=== PATIENT | female | born 1950 | race Caucasian/White ===

== ENCOUNTER 2016-07-12 11:54 | Emergency (ER) | payer OTHER ==
[2016-07-12 12:01] VITALS: BP 170/96; PULSE 98; TEMP 99; BMI 19.8
--- NOTE | 2016-07-12 14:55 | PDOC ---
History of Present Illness - General History Source: Patient Exam Limitations: No Limitations - History of Present Illness Initial Comments: 07/12/16 14:56 The patient is a 66 year old female, with a significant past medical history of anxiety and prior Hep C.( with treatment and viral cure) who presents to the emergency department with chills and weakness that has been getting progressively worse over the past couple of days. Patient reports normally being able to jog ,but recently is unable to do any strenuous physical activity secondary to weakness. She reports also having a baseline cough which she attributes to her current smoking habits. She reports also having one episode of diarrhea yesterday (nonbloody and nonbilious). She reports taking Ibuprofen with no alleviation of any of her symptoms. She denies having the flu shot this year. She denies any HIV testing upon ED arrival and her most recent HIV testing was negative. She denies any throat pain. She denies any abdominal pain. She denies chest pain and shortness of breath. She denies headache She denies nausea, vomit, and constipation. She denies dysuria, frequency, urgency and hematuria. She denies any other complaints at this time, and the remainder of the review of systems is negative. 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 <Freddy Rios - Last Filed: 07/12/16 16:04> <Tameka Brunner - Last Filed: 07/12/16 17:33> - General Chief Complaint: Cold Symptoms Stated Complaint: FEVER, WEAKNESS Time Seen by Provider: 07/12/16 13:53 Past History <Freddy Rios - Last Filed: 07/12/16 16:04> - Past Medical History Other medical history: DENIES - Psycho/Social/Smoking Cessation Hx Anxiety: Yes Suicidal Ideation: No Smoking History: Current every day smoker Number of Cigarettes Smoked Daily: 20 Information on smoking cessation initiated: Yes 'Breaking Loose' booklet given: 07/12/16 Hx Alcohol Use: No Drug/Substance Use Hx: Yes Substance Use Type: Prescribed <Tameka Brunner - Last Filed: 07/12/16 17:33> - Past Medical History Allergies/Adverse Reactions: Allergies Allergy/AdvReac Type Severity Reaction Status Date / Time No Known Allergies Allergy Verified 07/12/16 14:56 Home Medications: Ambulatory Orders Azithromycin [Zithromax] 250 mg PO UTDICT #6 tab 07/12/16 Lorazepam 3 mg PO HS 07/12/16 Lorazepam [Ativan] 2 mg PO DAILY 07/12/16 Methadone [Dolophine -] 50 mg PO DAILY 07/12/16 Review of Systems - Review of Systems Able to Perform ROS?: Yes Comments:: 07/12/16 14:56 12 point review of systems is as per history of present illness and otherwise negative <Freddy Rios - Last Filed: 07/12/16 16:04> *Physical Exam - Vital Signs Last Vital Signs Temp Pulse Resp BP Pulse Ox 99 F 98 H 18 170/96 100 07/12/16 11:54 07/12/16 11:54 07/12/16 11:54 07/12/16 11:54 07/12/16 11:54 - Physical Exam Comments: 07/12/16 14:56 GENERAL: The patient is awake, alert, and answering questions, in no respiratory distress HEAD: Normal with no signs of trauma. EYES: Normal CURLY ENT: Normal ENT Inspection. Slightly dry mucous membranes NECK: Normal range of motion, supple without lymphadenopathy LUNGS: Lungs Clear, Normal Breath Sounds HEART: Regular rate and rhythm, normal S1 and S2 without murmur, rub or gallop. ABDOMEN: Soft, nontender, normoactive bowel sounds. No guarding, no rebound. No masses appreciated. EXTREMITIES: Normal range of motion, no edema. No clubbing or cyanosis. No cords , erythema, or tenderness. NEUROLOGICAL: Cranial nerves II through XII grossly intact. Normal speech, normal gait. Grossly nonfocal neurologic exam PSYCH: Normal mood, normal affect. SKIN: Warm, Dry, normal turgor, no rashes or lesions noted. <Freddy Rios - Last Filed: 07/12/16 16:04> - Vital Signs Last Vital Signs Temp Pulse Resp BP Pulse Ox 99 F 98 H 18 170/96 100 07/12/16 11:54 07/12/16 11:54 07/12/16 11:54 07/12/16 11:54 07/12/16 11:54 <Tameka Brunner - Last Filed: 07/12/16 17:33> ED Treatment Course - RADIOLOGY Radiograph Interpretation: 07/12/16 16:04 CHEST X-RAY impressions reported by : Nodular density in the right lower lobe which can be further evaluated with CT. Irregularity of the right posterolateral eight rib which may reflect fracture of indeterminate age. <Freddy Rios - Last Filed: 07/12/16 16:04> - LABORATORY CBC & Chemistry Diagram: 07/12/16 16:13 07/12/16 16:13 - RADIOLOGY Radiology Studies Ordered: Category Date Time Status CHEST PA & LAT [RAD] Stat Radiology 07/12/16 14:54 Ordered <Tameka Brunner - Last Filed: 07/12/16 17:33> Medical Decision Making - Medical Decision Making 07/12/16 14:55 66-year-old female with past medical history as noted above presents with generalized malaise She does have a chronic smoker's cough-smokes one pack a day-but there is been no change in her smoker's cough, and is nonproductive She does admit to chills without fever She had some diarrhea yesterday which resolved She denies any other complaints 07/12/16 16:41 EKG Normal sinus rhythm 74, 0 axis Normal AV and IV conduction time Normal QTC Normal EKG 07/12/16 16:42 Chest x-ray There is a tiny nodule in the right lower lobe No definite infiltrate is seen 07/12/16 17:13 Laboratory Results - last 24 hr 07/12/16 07/12/16 07/12/16 16:13 16:13 16:13 WBC 14.4 H RBC 5.01 Hgb 14.9 Hct 45.4 H MCV 90.7 MCHC 32.9 RDW 13.8 Plt Count 310 MPV 8.4 Sodium 134 L Potassium 3.8 Chloride 97 L Carbon Dioxide 29 H Anion Gap 8 BUN 16 Creatinine 0.7 Creat Clearance w eGFR > 60 Random Glucose 66 L Calcium 9.5 Magnesium 2.1 Total Bilirubin 0.3 AST 49 H ALT 30 Alkaline Phosphatase 69 Creatine Kinase 118 Troponin I < 0.03 L Total Protein 8.8 H Albumin 4.5 Lipase 27 Elevated white count, cough, weakness, no definite infiltrate on chest x-ray Possibly some element of bronchitis Patient drinking fluids without difficulty Treatment with Z-Griffin 07/12/16 17:33 Influenza A and B- negative <Tameka Brunner - Last Filed: 07/12/16 17:33> *DC/Admit/Observation/Transfer - Attestations Scribe Attestion: 07/12/16 14:56 Documentation prepared by Freddy Rios, acting as medical art therapist for Tameka Brunner MD. <Freddy Rios - Last Filed: 07/12/16 16:04> <Tameka Brunner - Last Filed: 07/12/16 17:33> Diagnosis at time of Disposition: Bronchitis, Influenza-like illness - Discharge Dispostion Disposition: HOME Condition at time of disposition: Stable - Prescriptions Prescriptions: Azithromycin [Zithromax] 250 mg PO UTDICT #6 tab - Patient Instructions Additional Instructions: Zithromax Z-Griffin-take as directed Increase fluid intake Tylenol or Motrin if needed for discomfort You will be notified if you're flu swab is positive Followup with your primary care physician in 24-48 hours Return immediately if you worsen in any way Take your medications as directed
[2016-07-12] MEDS ORDERED: SODIUM CHLORIDE 1,000 ML IV SCH (15:00)
[2016-07-12 16:37] LABS: MCH 29.9 pg (25.7-33.7); MCHC 32.9 g/dl (32.0-36.0); MEAN CELL VOLUME 90.7 fl (80-96); MEAN PLT VOLUME 8.4 fl (7.5-11.1); PLATELET COUNT 310 K/MM3 (134-434); RDW 13.8 % (11.6-15.6); WHITE BLOOD COUNT 14.4 K/mm3 (4.0-10.0)
[2016-07-12 16:50] LABS: ALBUMIN 4.5 g/dl (3.5-5.0); ALK PHOS 69 U/L (32-92); ANION GAP 8 (8-16); BILIRUBIN,TOTAL 0.3 mg/dl (0.2-1.0); CALCIUM 9.5 mg/dl (8.4-10.2); CO2 29 mmol/L (22-28); CPK(DFH) 118 IU/L (26-140); CREATININE 0.7 mg/dl (0.6-1.3); GLUCOSE,RANDOM 66 mg/dl (74-106); MAGNESIUM 2.1 mg/dL (1.8-2.4); SGOT/AST 49 U/L (10-42); SGPT/ALT 30 U/L (10-40); TOT PROT 8.8 g/dl (6.4-8.3)
[2016-07-12 17:01] LABS: TROPONIN I (DFP) < 0.03 ng/ml (0.03-0.50)
[2016-07-12 17:53] LABS: PH,URINE >= 9.0 (4.5-8); URINE APPEARANCE Clear; URINE BILIRUBIN Negative (NEGATIVE); URINE BLOOD Negative (NEGATIVE); URINE GLUCOSE (UA) Negative (NEGATIVE); URINE KETONE Negative (NEGATIVE); URINE LEUK ESTERASE Trace (NEGATIVE); URINE NITRITE Negative (NEGATIVE); URINE PROTEIN Negative (NEGATIVE); URINE UROBILINOGEN 0.2 E.U/dl (0.2-1.0)
[2016-07-12 17:55] LABS: URINE COLOR YELLOW
--- NOTE | 2016-07-13 13:46 | EKG ---
Test Reason : Blood Pressure : / mmHG Vent. Rate : 078 BPM Atrial Rate : 078 BPM P-R Int : 126 ms QRS Dur : 086 ms QT Int : 382 ms P-R-T Axes : 031 000 015 degrees QTc Int : 435 ms NORMAL SINUS RHYTHM NORMAL ECG NO PREVIOUS ECGS AVAILABLE Confirmed by BEST SMITH MD ([id number]) on 07/13/2016 1:46:03 PM Referred By: DR SKINNER Confirmed By:BEST SMITH MD
== END 2016-07-12 17:37 | disposition home or self-care (01) ==
LOC: FER 11:54
DX: J11.1 Influenza due to unidentified influenza virus with other respiratory manifestations (principal); J40 Bronchitis, not specified as acute or chronic; F17.201 Nicotine dependence, unspecified, in remission; F41.9 Anxiety disorder, unspecified; B19.20 Unspecified viral hepatitis C without hepatic coma
CPT/HCPCS: 36415; 71020-TC; 80053; 81003; 82550; 83690; 83735; 84484; 85027; 87086; 87804; 93005; 99282-25

== ENCOUNTER 2017-06-15 11:15 | Emergency (ER) | payer OTHER ==
[2017-06-15 11:37] VITALS: BP 146/88; PULSE 90; TEMP 98.8; BMI 21.7
--- NOTE | 2017-06-15 11:57 | PDOC ---
History of Present Illness - General Chief Complaint: Shortness of Breath Stated Complaint: FEVER, SOB Time Seen by Provider: 06/15/17 11:54 History Source: Patient Exam Limitations: No Limitations - History of Present Illness Initial Comments: 06/15/17 11:57 My Chief Complaint: Chills, subjective [id number], shortness of breath with exertion History of present illness: Patient is a 67-year-old female with a history of anxiety, and past drug addiction here today complaining of subjective fever, chills, shortness of breath with exertion. Patient reports that 2 of her friends have been sick with sore throats, upper respiratory infections. Patient denies any sore throat, nasal congestion, cough, nausea, vomiting, and any chest pain. Patient is a smoker 1 pack a day for 30 years. Patient denies any wheezing or respiratory distress. 06/15/17 12:23 Timing/Duration: intermittent Severity: mild Associated Symptoms: reports: fever/chills (subjective), shortness of breath ( with ambulation ) Past History - Past Medical History Allergies/Adverse Reactions: Allergies Allergy/AdvReac Type Severity Reaction Status Date / Time No Known Allergies Allergy Verified 06/15/17 11:39 Home Medications: Ambulatory Orders Lorazepam 3 mg PO HS 07/12/16 Lorazepam [Ativan] 2 mg PO DAILY 07/12/16 Methadone [Dolophine -] 50 mg PO DAILY 07/12/16 COPD: No - Surgical History Abdominal Surgery: No Appendectomy: No Cardiac Surgery: No Cholecystectomy: No Gastric Stapling: No - Suicide/Smoking/Psychosocial Hx Smoking History: Current every day smoker Number of Cigarettes Smoked Daily: 20 Information on smoking cessation initiated: Yes 'Breaking Loose' booklet given: 06/15/17 Hx Alcohol Use: No Drug/Substance Use Hx: No Substance Use Type: Heroin, Prescribed Review of Systems - Review of Systems Able to Perform ROS?: Yes Constitutional: No: Symptoms Reported HEENTM: No: Symptoms Reported Respiratory: Yes: SOB with Exertion Cardiac (ROS): No: Symptoms Reported ABD/GI: No: Symptoms Reported : No: Symptoms Reported Musculoskeletal: No: Symptoms Reported Integumentary: No: Symptoms Reported *Physical Exam - Vital Signs Last Vital Signs Temp Pulse Resp BP Pulse Ox 98.8 F 90 18 146/88 100 06/15/17 11:33 06/15/17 11:33 06/15/17 11:33 06/15/17 11:33 06/15/17 11:33 - Physical Exam General Appearance: Yes: Appropriately Dressed HEENT: positive: Normal ENT Inspection Neck: negative: Lymphadenopathy (R), Lymphadenopathy (L) Respiratory/Chest: positive: Lungs Clear, Normal Breath Sounds. negative: Chest Tender, Respiratory Distress Cardiovascular: positive: Regular Rhythm, Regular Rate, S1, S2 Integumentary: positive: Normal Color Neurologic: positive: Alert, Normal Response, Responsive Medical Decision Making - Medical Decision Making 06/15/17 13:02 Patient is a 67-year-old female with a history of anxiety, and past drug addiction here today complaining of subjective fever, chills, shortness of breath with exertion. Patient reports that 2 of her friends have been sick with sore throats, upper respiratory infections. Patient denies any sore throat, nasal congestion, cough, nausea, vomiting, and any chest pain. Patient is a smoker 1 pack a day for 30 years. Patient denies any wheezing or respiratory distress. R/O infiltrate silverio; syndrome PLAN chest PA/lateral no infiltrate noted per Dr. Orozco 06/15/17 13:16 *DC/Admit/Observation/Transfer Diagnosis at time of Disposition: Viral syndrome - Discharge Dispostion Condition at time of disposition: Stable - Referrals Referrals: Lazaro Brantley MD [Primary Care Provider] - - Patient Instructions Additional Instructions: Drink a lot a fluids and rest Follow up with your primary care provider within the next few days Return to emergency room if any difficulty breathing or any new symptoms develop Patient voiced understanding of discharge instructions and all questions were answered Andthank you for choosing [facility] emergency room for your medical needs today - Post Discharge Activity
== END 2017-06-15 13:44 | disposition home or self-care (01) ==
LOC: JERFT 11:15
DX: B34.9 Viral infection, unspecified (principal); F41.9 Anxiety disorder, unspecified; F11.20 Opioid dependence, uncomplicated
CPT/HCPCS: 71020-TC; 99281-25

== ENCOUNTER 2024-01-28 09:38 | Inpatient (IN) | payer OTHER ==
[2024-01-28 10:04] VITALS: BMI 15.4
[2024-01-28] MEDS ORDERED: METOPROLOL TARTRATE 25 MG TABLET (FP) ONE (10:35)
[2024-01-28] MEDS ORDERED: NICOTINE POLACRILEX 2 MG GUM ONE (10:35)
[2024-01-28] MEDS ORDERED: POLYETHYLENE GLYCOL (HEALTHYLAX) 3350 17 GM PACKET PO PRN (10:38)
[2024-01-28] MEDS ORDERED: ACETAMINOPHEN 325 MG TABLET (FP) PO PRN (10:38)
[2024-01-28] MEDS ORDERED: LOPERAMIDE HCL 2 MG CAPSULE PO PRN (10:38)
[2024-01-28] MEDS ORDERED: DOCUSATE SODIUM 100 MG CAPSULE (FP) PO PRN (10:38)
[2024-01-28] MEDS ORDERED: NALOXONE HCL 0.4 MG/ML VIAL IM PRN (10:38)
[2024-01-28] MEDS ORDERED: IBUPROFEN 600 MG TABLET (FP) PO PRN (10:38)
[2024-01-28] MEDS ORDERED: IBUPROFEN 400 MG TABLET (FP) PO PRN (10:38)
[2024-01-28] MEDS ORDERED: MAG HYDROX/AL HYDROX/SIMETH 30 ML UNIT-DOSE CUP PO PRN (10:38)
[2024-01-28] MEDS ORDERED: MAGNESIUM HYDROX 2400MG/30ML ORAL SUSPENSION 30 ML CUP PO PRN (10:38)
[2024-01-28] MEDS ORDERED: guaiFENesin 600 MG TABLET.ER (FP) PO PRN (10:38)
[2024-01-28] MEDS ORDERED: BISACODYL 5 MG TABLET.DR (FP) PO PRN (10:38)
[2024-01-28] MEDS ORDERED: BENZONATATE 200 MG CAPSULE PO PRN (10:38)
[2024-01-28] MEDS ORDERED: NALOXONE (NARCAN) HCL 4 MG/0.1 ML SPRAY NS PRN (10:38)
[2024-01-28] MEDS ORDERED: BENZOCAINE/MENTHOL (CHLORASEPTIC ) LOZENGE MM PRN (10:38)
[2024-01-28] MEDS: METOPROLOL TARTRATE 25 MG TABLET (FP) PO ONE (10:40)
[2024-01-28] MEDS: NICOTINE POLACRILEX 2 MG GUM BUC PRN (10:40)
[2024-01-28] MEDS ORDERED: levETIRAcetam 500 MG TABLET (FP) PO ONE (11:04)
[2024-01-28] MEDS: levETIRAcetam 500 MG TABLET (FP) PO SCH (11:06)
[2024-01-28 16:41] LABS: HEMATOCRIT 42.6 % (32.4-45.2); HEMOGLOBIN 13.9 GM/dL (10.7-15.3); MCH 30.6 pg (25.7-33.7); MCHC 32.6 g/dl (32.0-36.0); MEAN CELL VOLUME 94.1 fl (80-96); MEAN PLT VOLUME 8.6 fl (7.5-11.1); PLATELET COUNT 355 10^3/uL (134-434); RBC 4.52 M/mm3 (3.60-5.2); RDW 14.1 % (11.6-15.6)
[2024-01-28 16:44] LABS: POTASSIUM 3.2 mmol/L (3.5-5.1)
[2024-01-28 16:47] LABS: CALCIUM 9.4 mg/dL (8.5-10.1)
[2024-01-28 16:48] LABS: ALBUMIN 3.7 g/dl (3.4-5.0); BLOOD UREA NITROGEN 28.6 mg/dL (7-18)
[2024-01-28 16:51] LABS: CREATININE 1.2 mg/dL (0.55-1.3)
[2024-01-28 16:53] LABS: BILIRUBIN,TOTAL 0.6 mg/dL (0.2-1)
[2024-01-28 20:20] LABS: EPI CELLS 33 /uL (0-25.1); HYALINE CASTS 18 /uL (0-3.1); URINE APPEARANCE TURBID; URINE BACTERIA 139 /uL (0-1359); URINE BILIRUBIN NEGATIVE (NEGATIVE); URINE COLOR YELLOW; URINE GLUCOSE (UA) TRACE (NEGATIVE); URINE KETONE NEGATIVE (NEGATIVE); URINE LEUK ESTERASE 2+ (NEGATIVE); URINE NITRITE NEGATIVE (NEGATIVE); URINE PROTEIN 2+ (NEGATIVE); URINE UROBILINOGEN 0.2 mg/dL (0.2-1.0); URINE WBC 681 /uL (0-25.8)
[2024-01-28] MEDS: MELATONIN 5 MG TABLETS PO SCH (22:46)
[2024-01-28] MEDS: SULFAMETHOXAZOLE/TRIMETHOPRIM 800MG/160MG D.S. TABLET PO SCH (22:46)
[2024-01-28] MEDS: THIAMINE 100 MG TABLET PO SCH (22:46)
[2024-01-29] MEDS: methaDONE 40 MG, methaDONE 10 MG PO SCH (05:58)
[2024-01-29] MEDS ORDERED: methaDONE HCL 40 MG DISPERSABLE TABLET PO SCH (06:00)
[2024-01-29] MEDS: POTASSIUM CHLORIDE ORAL LIQUID 20 MEQ/15 ML PO ONE (09:26)
[2024-01-29] MEDS: PRENATAL VITAMINS W/ FOLIC ACID TABLET (FP) PO SCH (09:26)
[2024-01-31] MEDS: cloNIDine HCL 0.1 MG TABLET PO ONE (12:06)
[2024-01-31] MEDS: propRANOLol HCL 10 MG TABLET PO ONE (12:14)
[2024-01-31] MEDS: NICOTINE POLACRILEX 4 MG GUM BUC PRN (14:15)
[2024-02-02] MEDS: diazePAM 5 MG TABLET PO ONE (19:13)
[2024-02-05 07:06] VITALS: RESP 18
[2024-02-06 07:06] VITALS: TEMP 98.1
[2024-02-06 09:30] VITALS: BP 162/91; PULSE 117
== END 2024-02-06 11:30 | disposition home or self-care (01) | DRG 895 ==
LOC: YASAS 09:38 → Y3NR 13:04 → Y5N 01-31 13:57
PROVIDERS: ADMIT Allergy & Immunology; ATTEND Psychiatry & Neurology Pain Medicine
PROC: HZ42ZZZ Group Counseling for Substance Abuse Treatment, Cognitive-Behavioral (ICD-10-PCS; principal; 2024-01-28)
DX: F10.20 Alcohol dependence, uncomplicated (principal); F11.20 Opioid dependence, uncomplicated; F17.210 Nicotine dependence, cigarettes, uncomplicated; F41.9 Anxiety disorder, unspecified; I10 Essential (primary) hypertension; G47.00 Insomnia, unspecified; E87.6 Hypokalemia; R74.01 Elevation of levels of liver transaminase levels; R00.0 Tachycardia, unspecified; Z86.19 Personal history of other infectious and parasitic diseases; Z87.440 Personal history of urinary (tract) infections; Z56.0 Unemployment, unspecified
CPT/HCPCS: 36415; 80053; 80305; 80307; 81003; 85027; 86780; 87811; 93005; 93010

== ENCOUNTER 2024-02-27 12:42 | Inpatient (IN) | payer OTHER ==
[2024-02-27] MEDS ORDERED: FAMOTIDINE 20 MG/50 ML IVPB 20 MG/50 ML MG IVPB ONE (13:45)
[2024-02-27] MEDS ORDERED: MAG HYDROX/AL HYDROX/SIMETH 30 ML UNIT-DOSE CUP ONE (14:06)
[2024-02-27] MEDS ORDERED: ACETAMINOPHEN INJECTION 100 ML ONE (14:06)
[2024-02-27] MEDS: MAG HYDROX/AL HYDROX/SIMETH 30 ML UNIT-DOSE CUP PO ONE (14:23)
[2024-02-27] MEDS: SODIUM CHLORIDE 0.9% 500 ML INFUS.BAG IV ONE ×3 (15:46→20:05)
[2024-02-27] MEDS: ACETAMINOPHEN 1000 MG/100 ML BAG IVPB ONE (15:46)
[2024-02-27 15:47] LABS: BASO % 0.4 % (0-2.0); EOS % 0.5 % (0-4.5); HEMATOCRIT 47.3 % (32.4-45.2); HEMOGLOBIN 15.9 GM/dL (10.7-15.3); LYMPH % 10.9 % (8-40); MCH 31.4 pg (25.7-33.7); MCHC 33.6 g/dl (32.0-36.0); MEAN CELL VOLUME 93.6 fl (80-96); MEAN PLT VOLUME 8.8 fl (7.5-11.1); MONO % 4.8 % (3.8-10.2); NEUT % 83.4 % (42.8-82.8); PLATELET COUNT 367 10^3/uL (134-434); RBC 5.05 M/mm3 (3.60-5.2); RDW 14.8 % (11.6-15.6); WHITE BLOOD COUNT 18.4 K/mm3 (4.0-10.0)
[2024-02-27 16:10] LABS: POTASSIUM 4.6 mmol/L (3.5-5.1)
[2024-02-27 16:13] LABS: ALBUMIN 4.5 g/dl (3.4-5.0); BLOOD UREA NITROGEN 40.3 mg/dL (7-18); CALCIUM 10.3 mg/dL (8.5-10.1); MAGNESIUM 2.8 mg/dL (1.8-2.4)
[2024-02-27 16:16] LABS: CREATININE 0.9 mg/dL (0.55-1.3); PHOSPHOROUS 4.5 mg/dL (2.5-4.9)
[2024-02-27 16:17] LABS: BILIRUBIN,TOTAL 0.7 mg/dL (0.2-1); TOT PROT 9.8 g/dl (6.4-8.2)
[2024-02-27] MEDS ORDERED: NICOTINE 14 MG/24 HOURS TOPICAL PATCH TD ONE (20:06)
[2024-02-27] MEDS: NICOTINE 14 MG/24 HOURS TOPICAL PATCH TD SCH (20:20)
[2024-02-27 20:39] LABS: HIV INTERPRETATION NEGATIVE (NEGATIVE)
[2024-02-27] MEDS ORDERED: THIAMINE HCL 200 MG/2 ML VIAL ONE (22:45)
[2024-02-27] MEDS ORDERED: SENNOSIDES 8.6MG TABLET (FP) PO ONE (22:45)
[2024-02-27] MEDS ORDERED: POLYETHYLENE GLYCOL (HEALTHYLAX) 3350 17 GM PACKET ONE (22:45)
[2024-02-27] MEDS: THIAMINE HCL 200 MG/2 ML VIAL IVPB ONE (23:02)
[2024-02-27] MEDS: POLYETHYLENE GLYCOL (HEALTHYLAX) 3350 17 GM PACKET PO SCH (23:03)
[2024-02-27] MEDS: SENNOSIDES 8.6MG TABLET (FP) PO SCH (23:03)
[2024-02-27] MEDS ORDERED: levETIRAcetam 500 MG TABLET (FP) PO ONE (23:50)
[2024-02-27] MEDS ORDERED: methaDONE HCL 10 MG TABLET ONE (23:50)
[2024-02-27] MEDS: methaDONE HCL 10 MG TABLET PO ONE (23:58)
[2024-02-27] MEDS: levETIRAcetam 500 MG TABLET (FP) PO SCH (23:59)
[2024-02-28] MEDS: ENOXAPARIN NA (PORCINE) 40 MG/0.4 ML DISP.SYRIN SQ SCH (10:47)
[2024-02-28] MEDS: THIAMINE HCL 200 MG/2 ML VIAL IVPB SCH (10:48)
[2024-02-28 12:04] LABS: BASO % 0.5 % (0-2.0); EOS % 1.8 % (0-4.5); HEMATOCRIT 38.2 % (32.4-45.2); HEMOGLOBIN 12.5 GM/dL (10.7-15.3); LYMPH % 13.6 % (8-40); MCH 31.2 pg (25.7-33.7); MCHC 32.8 g/dl (32.0-36.0); MEAN CELL VOLUME 95.1 fl (80-96); MEAN PLT VOLUME 8.9 fl (7.5-11.1); NEUT % 77.1 % (42.8-82.8); PLATELET COUNT 290 10^3/uL (134-434); RBC 4.02 M/mm3 (3.60-5.2); RDW 14.6 % (11.6-15.6); WHITE BLOOD COUNT 13.6 K/mm3 (4.0-10.0)
[2024-02-28 12:25] LABS: POTASSIUM 3.8 mmol/L (3.5-5.1)
[2024-02-28 12:28] LABS: ALBUMIN 3.6 g/dl (3.4-5.0); AMYLASE 115 U/L (25-115); BLOOD UREA NITROGEN 28.9 mg/dL (7-18)
[2024-02-28 12:29] LABS: CALCIUM 9.3 mg/dL (8.5-10.1); MAGNESIUM 2.4 mg/dL (1.8-2.4)
[2024-02-28 12:34] LABS: BILIRUBIN,TOTAL 0.5 mg/dL (0.2-1)
[2024-02-28 12:35] LABS: CREATININE 0.5 mg/dL (0.55-1.3); PHOSPHOROUS 3.5 mg/dL (2.5-4.9)
[2024-02-28 12:46] LABS: TOT PROT 7.5 g/dl (6.4-8.2)
[2024-02-28] MEDS: CEFTRIAXONE 1 GM in DEXTROSE 5%-WATER - 50 ML IVPB SCH (14:11)
[2024-02-28 15:11] VITALS: BMI 16.7
[2024-02-29 08:10] LABS: CARCINOEMBRYONIC ANTIGEN 9.5 ng/mL (0.0-4.7)
[2024-02-29] MEDS ORDERED: methaDONE HCL 10 MG TABLET (FOR DETOX USE ONLY) PO ONE (10:00)
[2024-02-29] MEDS: methaDONE HCL 10 MG TABLET PO ONE (10:50)
[2024-02-29] MEDS: MELATONIN 5 MG TABLETS PO ONE (21:08)
[2024-03-01] MEDS: methaDONE HCL 10 MG TABLET PO SCH (06:15)
[2024-03-01] MEDS: THIAMINE 100 MG TABLET PO SCH (13:36)
[2024-03-02] MEDS ORDERED: methaDONE HCL 10 MG TABLET PO ONE (10:00)
[2024-03-02 13:20] LABS: BASO % 0.5 % (0-2.0); EOS % 3.4 % (0-4.5); HEMATOCRIT 36.6 % (32.4-45.2); HEMOGLOBIN 12.3 GM/dL (10.7-15.3); LYMPH % 9.2 % (8-40); MCH 31.4 pg (25.7-33.7); MCHC 33.6 g/dl (32.0-36.0); MEAN CELL VOLUME 93.5 fl (80-96); MEAN PLT VOLUME 9.2 fl (7.5-11.1); MONO % 6.1 % (3.8-10.2); NEUT % 80.8 % (42.8-82.8); PLATELET COUNT 307 10^3/uL (134-434); RBC 3.92 M/mm3 (3.60-5.2); RDW 14.7 % (11.6-15.6); WHITE BLOOD COUNT 13.1 K/mm3 (4.0-10.0)
[2024-03-02 13:31] LABS: POTASSIUM 3.8 mmol/L (3.5-5.1)
[2024-03-02 13:33] LABS: ALBUMIN 3.4 g/dl (3.4-5.0); BLOOD UREA NITROGEN 17.5 mg/dL (7-18)
[2024-03-02 13:37] LABS: CREATININE 0.7 mg/dL (0.55-1.3)
[2024-03-02 13:38] LABS: BILIRUBIN,TOTAL 0.4 mg/dL (0.2-1); TOT PROT 7.1 g/dl (6.4-8.2)
[2024-03-03 13:10] VITALS: BP 116/79; PULSE 76; RESP 20; TEMP 97.9
== END 2024-03-03 18:07 | disposition home health service (06) | DRG 374 ==
LOC: JER 12:42 → JERBED 20:47 → J7W 02-28 03:04
PROVIDERS: ADMIT Internal Medicine; ATTEND Internal Medicine
DX: D49.0 Neoplasm of unspecified behavior of digestive system (principal); E43 Unspecified severe protein-calorie malnutrition; F11.20 Opioid dependence, uncomplicated; Z68.1 Body mass index [BMI] 19.9 or less, adult; R64 Cachexia; K86.89 Other specified diseases of pancreas; E86.0 Dehydration; E83.52 Hypercalcemia; K59.00 Constipation, unspecified; R62.7 Adult failure to thrive; D72.829 Elevated white blood cell count, unspecified; F17.200 Nicotine dependence, unspecified, uncomplicated; R56.9 Unspecified convulsions; F19.10 Other psychoactive substance abuse, uncomplicated
CPT/HCPCS: 36415; 70450-TC; 71045-TC-FY; 74177-TC; 80053; 80307; 82105; 82150; 82378; 82550; 82607; 82746; 83690; 83735; 84100; 84425; 85025; 86301; 86803; 87389; 87522; 93005; 93010; 97116-GP; 97162-GP; 99285-25; J0131; Q9967